=== PATIENT | male | born 1960 | race Caucasian/White ===

== ENCOUNTER 2018-07-08 20:02 | Observation (INO) ==
--- NOTE | 2018-07-08 20:27 | Emergency Department Note ---
Disposition Clinical Impression: Abdominal wall pain Leukocytosis Qualifiers: Leukocytosis type: unspecified Qualified Code(s): D72.829 - Elevated white blood cell count, unspecified Disposition: Admitted As Inpatient Condition: Fair Instructions: Abdominal Pain (ED) Reasons to Return/Additional Instructions: Continue to take home pain medication as prescribed. 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 Return sooner to the ER for any new or worsening symptoms such as fevers, nausea, vomiting, worsening abdominal or back pain. Referrals: Nick Carballo DO [Primary Care Provider] - Forms: ED Satisfaction Letter, Work/School Release Time of Disposition: 23:10 Abdominal Pain HPI - General Chief Complaint: ED Abdominal Pain Stated Complaint: Muscle Spasms Time Seen by Provider: 07/08/18 20:14 Source: patient Mode of arrival: ambulatory Limitations: no limitations Nursing Notes Reviewed: Yes Vital Signs Reviewed: Yes - History of Present Illness HPI Narrative: I have re-performed and reviewed the history documented by the medical student, and I confirm its accuracy except as noted below Pain Scale: 7 - Related Data Allergies Allergy/AdvReac Type Severity Reaction Status Date / Time No Known Allergies Allergy Verified 07/08/18 20:25 All systems ED: reviewed and negative except as stated. Constitutional: Denies: fever Cardiovascular: Denies: chest pain Respiratory: Denies: cough, dyspnea, wheezes Gastrointestinal: Reports: abdominal pain. Denies: nausea, vomiting, diarrhea, constipation, hematemesis, melena, hematochezia Genitourinary: Denies: urgency, dysuria Integumentary: Denies: rash Neurological: Denies: headache, weakness, numbness Abdominal Pain PMH - Past Medical History Medical history: Reports: diabetes, hypertension Male Surgical History: Reports: cholecystectomy Psychiatric history: Reports: no psych history - Social History Smoking status: Current every day smoker Alcohol use: Reports: none Drug use: Reports: none Physical Exam - General Limitations: no limitations General appearance: alert, in no apparent distress - Head Head exam: atraumatic, normocephalic, normal inspection - Eye Eye exam: Present: normal appearance, PERRL, EOMI - ENT ENT exam: normal exam, normal oropharynx, mucous membranes moist - Neck Neck exam: Present: normal inspection, full ROM, trachea midline - Chest Chest inspection: Present: normal inspection, symmetric chest wall rise - Respiratory Respiratory exam: Present: normal lung sounds bilaterally - Cardiovascular Cardiovascular exam: Present: regular rate, normal rhythm, normal heart sounds - Abdominal Exam Abdominal exam: Present: tenderness (Generalized tenderness, worse in the bilateral lower quadrants; tenderness to bilateral flanks just below ribs), distention (Generalized distention), guarding (Very mild guarding of the bilateral lower quadrants) - Extremities Exam Extremities exam: Present: normal inspection, full ROM. Absent: tenderness, pedal edema - Neurological Exam Neurological exam: Present: alert, oriented X3 - Psychiatric Psychiatric exam: Present: normal affect, normal mood - Skin Skin exam: Present: warm, dry, intact, normal color Course Course Narrative: With complaint of flank pain that radiates to the back and also to midline abdomen, there is concern for possible aortic etiology. Physical exam limited due to patient's obese body habitus. We will obtain a CT angiogram abdomen and pelvis. We will also give the patient fentanyl for pain control. We will also obtain LFTs, lipase, CBC, BMP. 22:56 CT abdomen and pelvis negative for any acute intra-abdominal process. Labs show leukocytosis of 20. Patient denies any other concerns for any other infectious etiologies at this time. Patient states his pain is better controlled at this time. He was offered admission for pain control and further evaluation of leukocytosis. Patient states that he recently had facet injections with corticosteroids on June 30 and thinks that this elevation may be due to steroid injections. He has declined offer for admission at this time despite discussing risks and benefits. We will have him follow-up with primary care physician and pain specialist on Wednesday, call for next available appointment. Strongly encourage him to return to the ED for any new or worsening symptoms. Abdomen/Pelvis CTA 07/08/18 20:42 IMPRESSION: Normal CTA of the abdomen and pelvis. No evidence of an abdominal aortic aneurysm. No evidence of abdominal aortic dissection. Mild bronchial wall thickening in the right lower lobe. Mild fatty infiltration liver. Moderate prostatomegaly. Prostate tumor cannot be excluded. Degenerative disc disease at L3-L4 and L5-S1. There is a moderate to severe left L5 nerve root canal stenosis. D/ / Alton Garcia MD / Alton Garcia MD Interpreting Provider: Alton Garcia MD Vital Signs Temperature 98.1 F 07/08/18 20:06 Pulse Rate 111 07/08/18 20:06 Respiratory Rate 20 07/08/18 20:06 Blood Pressure 149/96 07/08/18 20:06 O2 Sat by Pulse Oximetry 96 07/08/18 20:06 Temperature 98.1 F 07/08/18 20:21 Pulse Rate 92 07/08/18 22:22 Respiratory Rate 20 07/08/18 22:22 Blood Pressure 148/87 07/08/18 22:22 O2 Sat by Pulse Oximetry 95 07/08/18 22:22 Oxygen Delivery Oxygen Delivery Room Air Abdominal Pain - MDM Narrative Medical decision making narrative: With complaint of flank pain that radiates to the back and also to midline abdomen, there is concern for possible aortic etiology. Physical exam limited due to patient's obese body habitus. We will obtain a CT angiogram abdomen and pelvis. We will also give the patient fentanyl for pain control. We will also obtain LFTs, lipase, CBC, BMP. 22:56 CT abdomen and pelvis negative for any acute intra-abdominal process. Labs show leukocytosis of 20. Patient denies any other concerns for any other infectious etiologies at this time. Patient states his pain is better controlled at this time. He was offered admission for pain control and further evaluation of leukocytosis. Patient states that he recently had facet injections with corticosteroids on June 30 and thinks that this elevation may be due to steroid injections. He has declined offer for admission at this time despite discussing risks and benefits. We will have him follow-up with primary care physician and pain specialist on Wednesday, call for next available appointment. Strongly encourage him to return to the ED for any new or worsening symptoms such as fevers, worsening pain, nausea, vomiting. Patient states that he has home Percocet that he takes for chronic back pain that he will continue to take as prescribed until follow-up. 23:09 patient reassessed by attending. Patient now states that he would like to stay for further care due to return of abdominal pain. Will seek with hospitalist and admit for intractable abdominal pain and leukocytosis. Accepted by Dr. Graham. - Medical Records Medical records reviewed: Yes I reviewed the patient's medical records. - Lab Data Lab results reviewed: Yes I reviewed the patient's lab results. Result diagrams: 07/08/18 20:40 07/08/18 20:40 Lab Results 07/08/18 07/08/18 07/08/18 Range/Units 20:40 20:40 20:50 WBC 20.1 H (4.3-11.1) K/mcL RBC 5.29 (4.19-5.50) M/mcL Hgb 17.8 H (12.9-16.9) g/dL Hct 51.3 H (37.5-50.1) % MCV 97.0 (83.0-100.0) fL MCH 33.6 H (28.0-33.3) pg MCHC 34.7 (31.6-35.5) g/dL RDW 12.9 (11.5-14.5) % Plt Count 239 (140-400) K/mcL MPV 9.9 (9.4-12.4) fL Immature Gran % 1.1 (0-4) % Seg Neutrophils % 75.2 % Lymphocytes % 14.6 % Monocytes % 7.7 % Eosinophils % 1.1 % Basophils % 0.3 % Neutrophils # 15.1 H (1.6-8.9) K/mcL Lymphocytes # 2.9 (0.6-4.6) K/mcL Monocytes # 1.6 H (0.0-1.3) K/mcL Eosinophils # 0.2 (0.0-0.6) K/mcL Basophils # 0.1 (0.0-0.2) K/mcL Sodium 133 L (136-145) mEq/L Potassium 4.0 (3.5-5.1) mEq/L Chloride 98 (98-107) mEq/L Carbon Dioxide 27 (23-29) mEq/L BUN 27 H (6-20) mg/dL Creatinine 1.00 (0.70-1.30) mg/dL Est GFR ( Amer) > 60 (> 60) Est GFR (Non-Af Amer) > 60 (> 60) BUN/Creatinine Ratio 27 H (6-26) Glucose 159 H (70-105) mg/dL Calculated Osmolality 284 (280-300) Calcium 9.4 (8.6-10.3) mg/dL Total Bilirubin 0.4 (0.3-1.0) mg/dL Direct Bilirubin 0.1 (0.0-0.2) mg/dL Indirect Bilirubin 0.3 (0.0-1.2) mg/dL AST 13 (13-39) Units/L ALT 24 (7-52) Units/L Alkaline Phosphatase 59 (34-104) Units/L Serum Total Protein 7.4 (6.4-8.9) g/dL Albumin 4.5 (3.5-5.7) g/dL Globulin 2.9 (2.4-3.5) g/dL Albumin/Globulin Ratio 1.6 (1.1-2.2) Lipase 40 (11-82) Units/L Urine Color Yellow (Yellow) Urine Clarity Clear (Clear) Urine pH 6.0 (5.0-8.0) pH Units Ur Specific [place] 1.021 (1.010-1.025) Urine Protein Trace (Neg-Trace) mg/dL Urine Glucose (UA) Normal (Normal) mg/dL Urine Ketones Negative (Negative) mg/dL Urine Blood Negative (Negative) Urine Nitrite Negative (Negative) Urine Bilirubin Negative (Negative) Urine Urobilinogen Normal (Normal) mg/dL Ur Leukocyte Esterase Negative (Negative) Urine Microscopic RBC 0-3 (0-3) per hpf Urine Microscopic WBC 0-3 (0-3) per hpf Ur Squamous Epith Cells Moderate H (None-Few) per lpf Urine Bacteria None Seen (None-Few) per hpf Hyaline Casts None Seen (None-Few) per lpf Ur Culture Indicated? NO (NO) - Radiology Data Radiology results reviewed: Yes I reviewed the patient's radiology results. Abdomen/Pelvis CTA 07/08/18 20:42
[2018-07-08] MEDS ORDERED: Isovue-370 500 ML INFUS..BTL IV ONE (20:42)
[2018-07-08] MEDS ORDERED: *HR* FentaNYL (PF) 100 MCG/2 ML VIAL IVP ONE ×2 (20:43→22:14)
--- NOTE | 2018-07-08 20:53 | Emergency Department Note ---
Disposition Clinical Impression: Abdominal wall pain Disposition: Home, Self-Care Referrals: Nick Carballo DO [Primary Care Provider] - Forms: ED Satisfaction Letter, Work/School Release Abdominal Pain HPI - General Chief Complaint: ED Abdominal Pain Stated Complaint: Muscle Spasms Time Seen by Provider: 07/08/18 20:14 Source: patient Mode of arrival: ambulatory - History of Present Illness HPI Narrative: 58yo male with HTN, DM, chronic back pain, and cholecystectomy presents with abdominal muscle spasms for 3 days. Pt states they intermittantly come and today they are worse than usual. He has had muscle spasms in the past, most recently 1 month ago which resolved on their own. This current episode is in his lateral abdomen bilaterally which radiates around to his flank. Pain is worse right now in bilateral lower quadrants. No history of kidney stones. Pt has history of chronic back pain and has had back surgery. He now takes percocet 3 times daily but has taken more today to try to help with the pain. He feels that his stomach feels "tighter than usual" and the spasms feel deep. He denies urinary frequency, urgency, dysuria, or hematuria. Pt has "some kind of infectious diarrhea disease" where he takes medications dailyto "hold off the bacteria." This morning he may have had a little more diarrhea than what is normal for him. Pt has nausea but as not vomited. Pt is currently a 3 pack per day smoker and denies alcohol. Pain Scale: 7 - Related Data Allergies Allergy/AdvReac Type Severity Reaction Status Date / Time No Known Allergies Allergy Verified 07/08/18 20:25 Review of Systems: As Per HPI Constitutional: Denies: fever, chills Cardiovascular: Denies: chest pain Respiratory: Denies: cough Gastrointestinal: Reports: abdominal pain, nausea, diarrhea. Denies: vomiting, constipation, hematemesis, melena, hematochezia Genitourinary: Denies: urgency, dysuria, frequency, hematuria Musculoskeletal: Reports: back pain (chronic) Abdominal Pain PMH - Past Medical History Medical history: Reports: diabetes, hypertension Male Surgical History: Reports: cholecystectomy Psychiatric history: Reports: no psych history - Social History Smoking status: Current every day smoker Alcohol use: Reports: none Drug use: Reports: none Physical Exam poor abdominal exam secondary to patients body habitus - General Limitations: no limitations General appearance: alert, in no apparent distress - Head Head exam: atraumatic, normocephalic - Chest Chest inspection: Present: normal inspection - Respiratory Respiratory exam: Present: normal lung sounds bilaterally - Cardiovascular Cardiovascular exam: Present: regular rate, normal rhythm, normal heart sounds - Abdominal Exam Abdominal exam: Present: tenderness, distention (tighter than usual), guarding ( mild) Abdominal tenderness: Present: LUQ, LLQ Course Course Narrative: Due to paitent body habitus, an accurate physical exam could not be performed. Because of this and the patietns complaints a CTA of the abdomen was performed that showed no acute process. CBC did demonstrate a white count of 20,000. The findings were discussed with patient and stated that he had steroid injection on the 30 of June. Pt stated he would rather than go home than stayed in the hospital. The discussion was had that if any new or worsening symptoms arise to come back for re-evaluation. Vital Signs Temperature 98.1 F 07/08/18 20:06 Pulse Rate 111 07/08/18 20:06 Respiratory Rate 20 07/08/18 20:06 Blood Pressure 149/96 07/08/18 20:06 O2 Sat by Pulse Oximetry 96 07/08/18 20:06 Temperature 98.1 F 07/08/18 20:21 Pulse Rate 92 07/08/18 22:22 Respiratory Rate 20 07/08/18 22:22 Blood Pressure 148/87 07/08/18 22:22 O2 Sat by Pulse Oximetry 95 07/08/18 22:22 Oxygen Delivery Oxygen Delivery Room Air Abdominal Pain - Lab Data Result diagrams: 07/08/18 20:40 07/08/18 20:40 Lab Results 07/08/18 07/08/18 07/08/18 Range/Units 20:40 20:40 20:50 WBC 20.1 H (4.3-11.1) K/mcL RBC 5.29 (4.19-5.50) M/mcL Hgb 17.8 H (12.9-16.9) g/dL Hct 51.3 H (37.5-50.1) % MCV 97.0 (83.0-100.0) fL MCH 33.6 H (28.0-33.3) pg MCHC 34.7 (31.6-35.5) g/dL RDW 12.9 (11.5-14.5) % Plt Count 239 (140-400) K/mcL MPV 9.9 (9.4-12.4) fL Immature Gran % 1.1 (0-4) % Seg Neutrophils % 75.2 % Lymphocytes % 14.6 % Monocytes % 7.7 % Eosinophils % 1.1 % Basophils % 0.3 % Neutrophils # 15.1 H (1.6-8.9) K/mcL Lymphocytes # 2.9 (0.6-4.6) K/mcL Monocytes # 1.6 H (0.0-1.3) K/mcL Eosinophils # 0.2 (0.0-0.6) K/mcL Basophils # 0.1 (0.0-0.2) K/mcL Sodium 133 L (136-145) mEq/L Potassium 4.0 (3.5-5.1) mEq/L Chloride 98 (98-107) mEq/L Carbon Dioxide 27 (23-29) mEq/L BUN 27 H (6-20) mg/dL Creatinine 1.00 (0.70-1.30) mg/dL Est GFR ( Amer) > 60 (> 60) Est GFR (Non-Af Amer) > 60 (> 60) BUN/Creatinine Ratio 27 H (6-26) Glucose 159 H (70-105) mg/dL Calculated Osmolality 284 (280-300) Calcium 9.4 (8.6-10.3) mg/dL Total Bilirubin 0.4 (0.3-1.0) mg/dL Direct Bilirubin 0.1 (0.0-0.2) mg/dL Indirect Bilirubin 0.3 (0.0-1.2) mg/dL AST 13 (13-39) Units/L ALT 24 (7-52) Units/L Alkaline Phosphatase 59 (34-104) Units/L Serum Total Protein 7.4 (6.4-8.9) g/dL Albumin 4.5 (3.5-5.7) g/dL Globulin 2.9 (2.4-3.5) g/dL Albumin/Globulin Ratio 1.6 (1.1-2.2) Lipase 40 (11-82) Units/L Urine Color Yellow (Yellow) Urine Clarity Clear (Clear) Urine pH 6.0 (5.0-8.0) pH Units Ur Specific [place] 1.021 (1.010-1.025) Urine Protein Trace (Neg-Trace) mg/dL Urine Glucose (UA) Normal (Normal) mg/dL Urine Ketones Negative (Negative) mg/dL Urine Blood Negative (Negative) Urine Nitrite Negative (Negative) Urine Bilirubin Negative (Negative) Urine Urobilinogen Normal (Normal) mg/dL Ur Leukocyte Esterase Negative (Negative) Urine Microscopic RBC 0-3 (0-3) per hpf Urine Microscopic WBC 0-3 (0-3) per hpf Ur Squamous Epith Cells Moderate H (None-Few) per lpf Urine Bacteria None Seen (None-Few) per hpf Hyaline Casts None Seen (None-Few) per lpf Ur Culture Indicated? NO (NO)
[2018-07-08 21:06] LABS: Bilirubin,Urine Negative (Negative); Blood,Urine Negative (Negative); Clarity,Urine Clear (Clear); Color,Urine Yellow (Yellow); Glucose,Urine (UA) Normal (Normal); Ketones,Urine Negative (Negative); Leukocyte Esterase,Urine Negative (Negative); Nitrite,Urine Negative (Negative); Protein,Urine Trace mg/dL (Neg-Trace); Specific Gravity,Urine 1.021 (1.010-1.025); Urobilinogen,Urine Normal (Normal)
[2018-07-08 21:08] LABS: Bacteria,Urine None Seen per hpf (None-Few); Hyaline Casts,Urine None Seen per lpf (None-Few); RBC,Urine 0-3 per hpf (0-3); Squamous Epithelial Cell,Urine Moderate per lpf (None-Few); WBC,Urine 0-3 per hpf (0-3)
[2018-07-08 21:08] LABS: Basophils # 0.1 K/mcL (0.0-0.2); Basophils % 0.3 %; Eosinophils # 0.2 K/mcL (0.0-0.6); Eosinophils % 1.1 %; Hematocrit 51.3 % (37.5-50.1); Hemoglobin 17.8 g/dL (12.9-16.9); Immature Granulocytes % 1.1 % (0-4); Lymphocytes # 2.9 K/mcL (0.6-4.6); Lymphocytes % 14.6 %; Mean Corpuscular HGB Conc 34.7 g/dL (31.6-35.5); Mean Corpuscular Hemoglobin 33.6 pg (28.0-33.3); Mean Platelet Volume 9.9 fL (9.4-12.4); Monocytes # 1.6 K/mcL (0.0-1.3); Monocytes % 7.7 %; Neutrophils # 15.1 K/mcL (1.6-8.9); Platelet Count 239 K/mcL (140-400); Red Blood Count 5.29 M/mcL (4.19-5.50); Red Cell Distribution Width 12.9 % (11.5-14.5); Segmented Neutrophils % 75.2 %
[2018-07-08 21:24] LABS: Alanine Aminotransferase 24 Units/L (7-52); Albumin 4.5 g/dL (3.5-5.7); Albumin/Globulin Ratio 1.6 (1.1-2.2); Alkaline Phosphatase 59 Units/L (34-104); Aspartate Amino Transferase 13 Units/L (13-39); BUN/Creatinine Ratio 27 (6-26); Bilirubin,Direct 0.1 mg/dL (0.0-0.2); Bilirubin,Indirect 0.3 mg/dL (0.0-1.2); Bilirubin,Total 0.4 mg/dL (0.3-1.0); Blood Urea Nitrogen 27 mg/dL (6-20); Calcium 9.4 mg/dL (8.6-10.3); Carbon Dioxide 27 mEq/L (23-29); Chloride 98 mEq/L (98-107); Globulin 2.9 g/dL (2.4-3.5); Glucose 159 mg/dL (70-105); Lipase 40 Units/L (11-82); Osmolality,Calculated 284 (280-300); Sodium 133 mEq/L (136-145); Total Protein 7.4 g/dL (6.4-8.9); eGFR For Non-African Americans > 60 (> 60)
--- NOTE | 2018-07-08 21:29 | Emergency Department Note ---
Disposition Clinical Impression: Abdominal wall pain, Leukocytosis Disposition: Admitted As Inpatient Condition: Fair Instructions: Abdominal Pain (ED) Reasons to Return/Additional Instructions: Continue to take home pain medication as prescribed. 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 Return sooner to the ER for any new or worsening symptoms such as fevers, nausea, vomiting, worsening abdominal or back pain. Referrals: Nick Carballo, [Primary Care Provider] - Forms: ED Satisfaction Letter, Work/School Release General Adult HPI - General Chief complaint: ED Abdominal Pain Stated complaint: Muscle Spasms Time Seen by Provider: 07/08/18 20:14 Source: patient Mode of arrival: ambulatory Limitations: no limitations - History of Present Illness Pain Scale: 6 - Related Data Allergies Allergy/AdvReac Type Severity Reaction Status Date / Time No Known Allergies Allergy Verified 07/08/18 20:25 Constitutional: Denies: fever, chills Cardiovascular: Denies: chest pain Respiratory: Denies: cough Gastrointestinal: Reports: abdominal pain, nausea, diarrhea. Denies: vomiting, constipation, hematemesis, melena, hematochezia Genitourinary: Denies: urgency, dysuria, frequency, hematuria Musculoskeletal: Reports: back pain (chronic) Integumentary: Denies: rash Neurological: Denies: headache, weakness, numbness Past Medical History - Past Medical History Medical history: Reports: diabetes, hypertension Psychiatric history: Reports: no psych history - Social History Smoking Status: Current every day smoker Smokeless Tobacco Status: No Alcohol use: Reports: none Drug use: Reports: none Physical Exam - General Limitations: no limitations General appearance: alert, in no apparent distress Course Vital Signs Temperature 98.1 F 07/08/18 20:06 Pulse Rate 111 07/08/18 20:06 Respiratory Rate 20 07/08/18 20:06 Blood Pressure 149/96 07/08/18 20:06 O2 Sat by Pulse Oximetry 96 07/08/18 20:06 Temperature 98.1 F 07/08/18 20:21 Pulse Rate 92 07/08/18 22:22 Respiratory Rate 20 07/08/18 22:22 Blood Pressure 148/87 07/08/18 22:22 O2 Sat by Pulse Oximetry 95 07/08/18 22:22 Oxygen Delivery Oxygen Delivery Room Air Medical Decision Making - Lab Data Result diagrams: 07/08/18 20:40 07/08/18 20:40 Lab Results 07/08/18 07/08/18 07/08/18 Range/Units 20:40 20:40 20:50 WBC 20.1 H (4.3-11.1) K/mcL RBC 5.29 (4.19-5.50) M/mcL Hgb 17.8 H (12.9-16.9) g/dL Hct 51.3 H (37.5-50.1) % MCV 97.0 (83.0-100.0) fL MCH 33.6 H (28.0-33.3) pg MCHC 34.7 (31.6-35.5) g/dL RDW 12.9 (11.5-14.5) % Plt Count 239 (140-400) K/mcL MPV 9.9 (9.4-12.4) fL Immature Gran % 1.1 (0-4) % Seg Neutrophils % 75.2 % Lymphocytes % 14.6 % Monocytes % 7.7 % Eosinophils % 1.1 % Basophils % 0.3 % Neutrophils # 15.1 H (1.6-8.9) K/mcL Lymphocytes # 2.9 (0.6-4.6) K/mcL Monocytes # 1.6 H (0.0-1.3) K/mcL Eosinophils # 0.2 (0.0-0.6) K/mcL Basophils # 0.1 (0.0-0.2) K/mcL Sodium 133 L (136-145) mEq/L Potassium 4.0 (3.5-5.1) mEq/L Chloride 98 (98-107) mEq/L Carbon Dioxide 27 (23-29) mEq/L BUN 27 H (6-20) mg/dL Creatinine 1.00 (0.70-1.30) mg/dL Est GFR ( Amer) > 60 (> 60) Est GFR (Non-Af Amer) > 60 (> 60) BUN/Creatinine Ratio 27 H (6-26) Glucose 159 H (70-105) mg/dL Calculated Osmolality 284 (280-300) Calcium 9.4 (8.6-10.3) mg/dL Total Bilirubin 0.4 (0.3-1.0) mg/dL Direct Bilirubin 0.1 (0.0-0.2) mg/dL Indirect Bilirubin 0.3 (0.0-1.2) mg/dL AST 13 (13-39) Units/L ALT 24 (7-52) Units/L Alkaline Phosphatase 59 (34-104) Units/L Serum Total Protein 7.4 (6.4-8.9) g/dL Albumin 4.5 (3.5-5.7) g/dL Globulin 2.9 (2.4-3.5) g/dL Albumin/Globulin Ratio 1.6 (1.1-2.2) Lipase 40 (11-82) Units/L Urine Color Yellow (Yellow) Urine Clarity Clear (Clear) Urine pH 6.0 (5.0-8.0) pH Units Ur Specific [place] 1.021 (1.010-1.025) Urine Protein Trace (Neg-Trace) mg/dL Urine Glucose (UA) Normal (Normal) mg/dL Urine Ketones Negative (Negative) mg/dL Urine Blood Negative (Negative) Urine Nitrite Negative (Negative) Urine Bilirubin Negative (Negative) Urine Urobilinogen Normal (Normal) mg/dL Ur Leukocyte Esterase Negative (Negative) Urine Microscopic RBC 0-3 (0-3) per hpf Urine Microscopic WBC 0-3 (0-3) per hpf Ur Squamous Epith Cells Moderate H (None-Few) per lpf Urine Bacteria None Seen (None-Few) per hpf Hyaline Casts None Seen (None-Few) per lpf Ur Culture Indicated? NO (NO) Attestation Statement - Attestation Attestation: I examined this patient and my medical decision-making was reviewed with the TUBE DISPATCHER/PA/Advanced Practice Nurse/Resident Physician. I agree with the documented findings, disposition and treatment plan as described except to the extent set forth below. I did see the patient and spoke with him and examine him. Does have moderate amount of generalized abdominal pain. CTA of the abdomen as well as labs are pending. The patient denies any fevers or vomiting the patient does not have any blood in the urine or stool. Concern for ischemic pain and that is why the CTAs pain done. Vital signs revealed tachycardia but no hypotension. White blood cell count significantly elevated. CT scan pending. 2126 I did review the patient's labs with a white blood cell count over 20,000 which is concerning. He did receive facet joint steroid injections 8 days ago but it is hard with a white blood cell count is elevated because of that. Additionally the patient was reexaminedI did reexamine the abdomen with minimal generalized pain but in addition did examine the area and there is no evidence of Migue's gangrene, hernias, or any cellulitis about the gluteal region. He does have minimal left testicular pain which she states is chronic but no masses are palpated. No right testicular pain. No penile discharge. Concern could be for bacteremia. CTA of the abdomen is negative but the patient is still having ongoing abdominal pain as well as elevated white blood cell count. I do not detect an acute surgical etiology. The patient will be admitted for further observation and management. The patient will have blood cultures done as he may have bacteremia manifested by the increased white blood cell count and we will not know about the culture results for 24-48 hours 1114
[2018-07-09] MEDS ORDERED: 0.9 % Sodium Chloride 1,000 ML IVC ONE (00:02)
[2018-07-09] MEDS ORDERED: Dextrose Gel 15 GM/37.5 ML TUBE PO PRN ×2 (00:46)
[2018-07-09] MEDS ORDERED: *HR* OxyCODONE Immed Rel 5 MG TABLET PO PRN (01:13)
[2018-07-09 02:00] LABS: Basophils # 0.1 K/mcL (0.0-0.2); Basophils % 0.3 %; Eosinophils # 0.2 K/mcL (0.0-0.6); Eosinophils % 1.3 %; Hematocrit 49.7 % (37.5-50.1); Hemoglobin 16.9 g/dL (12.9-16.9); Immature Granulocytes % 1.1 % (0-4); Lymphocytes # 2.6 K/mcL (0.6-4.6); Lymphocytes % 14.1 %; Mean Corpuscular Hemoglobin 33.1 pg (28.0-33.3); Mean Corpuscular Volume 97.3 fL (83.0-100.0); Mean Platelet Volume 10.1 fL (9.4-12.4); Monocytes # 1.2 K/mcL (0.0-1.3); Monocytes % 6.5 %; Neutrophils # 14.1 K/mcL (1.6-8.9); Platelet Count 239 K/mcL (140-400); Red Blood Count 5.11 M/mcL (4.19-5.50); Segmented Neutrophils % 76.7 %
[2018-07-09 02:19] LABS: BUN/Creatinine Ratio 29 (6-26); Blood Urea Nitrogen 26 mg/dL (6-20); Calcium 9.4 mg/dL (8.6-10.3); Carbon Dioxide 27 mEq/L (23-29); Chloride 97 mEq/L (98-107); Glucose 150 mg/dL (70-105); Osmolality,Calculated 282 (280-300); Potassium 4.3 mEq/L (3.5-5.1); Sodium 132 mEq/L (136-145); eGFR For Non-African Americans > 60 (> 60)
--- NOTE | 2018-07-09 02:55 | Internal Med History&Physical ---
Date of Encounter: 07/09/18 Time of Encounter: 02:51 Internal Medicine - H&P: HPI Chief complaint: abdominal pain Admitted From: Home Plans for Post Hospital Care: Home History of present illness: Mr. Mckeno is a 58 year old morbidly man with a history of chronic back pain for which he is on longstanding opiates and undergoes intra-articular steroid injections who presents to the ER with the complaint of lower abdominal pain for 3 days. He states he usually gets musculoskeletal pains diffusely especially in his back and sides of his chest but that this lower abdomen pain is new. In the ER a CT scan was done which did not show acute anomalies. Serum studies are within normal limits however he was seen to have leukocytosis of unclear etiology. He states he does not take systemic steroids. He has felt nauseated but denies vomiting, fever, chills and diarrhea. He was given multiple doses of analgesics to obtain relief and on my assessment he was sitting up in bed with only mild discomfort during movement. He was admitted for observation due to the finding of leukocytosis with abdominal pain of unclear etiology. Past Med Surg Social Fam HX - Past Medical History Medical history: hypertension Additional medical history: Rectal abscess Psychiatric history: no psych history - Past Surgical History Surgical History: cholecystectomy Additional surgical history: rectal abscess, back surgery - Social History Smoking Status: Current every day smoker Packs per day: 3 Smokeless Tobacco Status: No Alcohol use: none Drug use: none Internal Medicine - H&P: Meds Cholestyramine 4 g PO DAILY 07/09/18 [History] Fenofibrate [Tricor] 54 mg PO DAILY 07/09/18 [History] Gabapentin [Neurontin] 300 mg PO TID 07/09/18 [History] Lisinopril/Hydrochlorothiazide [Zestoretic 10-12.5 mg Tablet] See Protocol PO [History] Oxycodone HCl 10 mg PO TID 07/09/18 [History] Ranitidine HCl [Acid Rental Car Porter] 150 mg PO BID 07/09/18 [History] Tizanidine HCl [Zanaflex] 4 mg PO BID 07/09/18 [History] rOPINIRole [Requip] 1 mg PO DAILY 07/09/18 [History] 3 Allergy/AdvReac Type Severity Reaction Status Date / Time No Known Allergies Allergy Verified 07/08/18 20:25 All Systems PM: A 10-system review of systems was performed and is negative for pertinent findings except as documented above in the HPI. - Constitutional Vitals: Temp Pulse Resp BP Pulse Ox 97.8 F 89 18 146/96 91 07/09/18 00:28 07/09/18 00:28 07/09/18 00:28 07/09/18 00:28 07/09/18 00:28 Exam: Vitals: Reviewed General: Obese, NAD Skin: Warm and supple. HEENT: Moist mucous membranes. No conjunctivae pallor. Neck: No lymphadenopathy. No JVD. No carotid bruits. No palpable thyroid. Chest: Normal thoracic expansion. Normal breath sounds. Clear to auscultation. Heart: Normal S1 & S2; rhythmic. No rubs or murmurs. Abdomen: Highly distended and only tender to palpation in the lower abdominal wall and musculature, no peritoneal reaction. Extremities: No clubbing, cyanosis or edema. No calf tenderness. Normal distal pulses. Neurological: Awake, alert and oriented to person, place and time. No focal deficits. Psych: Affect appropriate. Internal Med - H&P Results - Labs CBC & Chem 7: 07/09/18 01:20 07/09/18 01:20 Labs: Short CBC 07/09/18 Range/Units 01:20 WBC 18.4 H (4.3-11.1) K/mcL Hgb 16.9 (12.9-16.9) g/dL Hct 49.7 (37.5-50.1) % Plt Count 239 (140-400) K/mcL Neutrophils # 14.1 H (1.6-8.9) K/mcL BMP 07/09/18 01:20 Sodium 132 L Potassium 4.3 Chloride 97 L Carbon Dioxide 27 BUN 26 H Creatinine 0.90 Glucose 150 H Calcium 9.4 - Assessment and plan (1) Abdominal wall pain Current Visit: Yes Status: Acute Assessment and plan: Unclear etiology. Lipase and urine studies within normal limits. He denies dysuria given the location is somewhat suprapubic in origin. It appears to be more related with the abdominal wall itself and musculature rather than deep structures based on my physical exam. Will continue pain medications as needed. (2) Leukocytosis Current Visit: Yes Status: Acute Assessment and plan: Seems to be a new finding however there are no active signs of infection to which to attribute this to. This is the main reason for observation in addition to his abdominal pain to ensure there is no acute organic process causing this. Cultures were obtained however there is no indication for antibiotic therapy at this time. Will repeat CBC and see if this improves with fluids alone. Qualifiers: Leukocytosis type: unspecified Qualified Code(s): D72.829 - Elevated white blood cell count, unspecified (3) Hyponatremia Current Visit: Yes Status: Acute Assessment and plan: Unclear etiology. Will give IV NS and re-check value as it may be hypovolemic in origin. (4) Lumbago Current Visit: Yes Status: Chronic Assessment and plan: Will continue muscle relaxants and pain medications. He follows as an outpatient. Qualifiers: Chronicity: chronic Back pain laterality: bilateral Sciatica presence: with sciatica Sciatica laterality: sciatica laterality unspecified Qualified Code(s): M54.40 - Lumbago with sciatica, unspecified side; G89.29 - Other chronic pain (5) Hypertension Current Visit: Yes Status: Chronic Assessment and plan: Resume lisinopril/hctz. Qualifiers: Hypertension type: essential hypertension Qualified Code(s): I10 - Essential (primary) hypertension (6) DVT prophylaxis Current Visit: Yes Status: Acute Assessment and plan: SubQ heparin ordered. - Time Spent With Patient Total time spent is greater than 50% in coordination of care (as documented) at patient's floor/unit and/or counseling patient: 25 - 35 minutes
[2018-07-09] MEDS ORDERED: Insulin LISPRO 300 UNITS/3 ML VIAL SQ SCH (06:00)
[2018-07-09] MEDS ORDERED: *HR* Heparin 5,000 UNIT/ML VIAL SQ SCH (06:00)
[2018-07-09 07:01] VITALS: BP 150/94
[2018-07-09] MEDS ORDERED: Famotidine 20 MG TABLET PO SCH (09:00)
[2018-07-09] MEDS ORDERED: tiZANidine 4 MG TABLET PO SCH (09:00)
[2018-07-09] MEDS ORDERED: Gabapentin 300 MG CAPSULE PO SCH (09:00)
[2018-07-09] MEDS ORDERED: Fenofibrate 54 MG TABLET PO SCH (09:00)
[2018-07-09] MEDS ORDERED: Cholestyramine 4 GM POWD.PACK PO SCH (09:38)
--- NOTE | 2018-07-09 11:12 | Discharge Summary ---
Date of Encounter: 07/09/18 Time of Encounter: 11:10 - Discharge Diagnosis (1) Abdominal wall pain Priority: Primary Status: Acute (2) Lumbago Priority: Primary Status: Chronic Qualifiers: Chronicity: chronic Back pain laterality: bilateral Sciatica presence: with sciatica Sciatica laterality: sciatica laterality unspecified Qualified Code(s): M54.40 - Lumbago with sciatica, unspecified side; G89.29 - Other chronic pain (3) Leukocytosis Priority: Secondary Status: Acute Qualifiers: Leukocytosis type: unspecified Qualified Code(s): D72.829 - Elevated white blood cell count, unspecified (4) Hypertension Priority: Secondary Status: Chronic Qualifiers: Hypertension type: essential hypertension Qualified Code(s): I10 - Essential (primary) hypertension Hospital course: Mr. Mckeon is a 58 year old male. This is a patient with severe DJD of spine. He is on OxyContin. We admitted him with lower abdominal pain. We did CT of abdomen/pelvis. It showed normal findings. He has elevated WBC count, likely due to a steroid injection he received the about 1 week before this admission. His WBC count dropped from 20, 1 thousand to 18.4 thousand. He got significantly better by the time of discharge. CONDITION AT DISCHARGE: His neck pain/lower back pain seemed to be under control. He has only mild lower abdominal pain. It is not associated with nausea or vomiting. He has normal bowel movements. Skin: Free of rash and discoloration. Respiratory: Normal breath sounds with no crackles and wheezes bilaterally. CV: Heart is regular with no gallop or murmur. GI: Abdomen is flat and soft with no palpable mass or visceromegaly. Neuro exam: There is no focal deficits. Normal speech, swallowing and gait. SEE DISCHARGE ORDERS/MEDICATIONS.. - Time Spent with Patient Total time spent providing and/or coordinating discharge services: Greater than 30 minutes (40 minutes..) - Discharge Medications Home Medications: Cholestyramine 4 g PO DAILY 07/09/18 [History] Fenofibrate [Tricor] 54 mg PO DAILY 07/09/18 [History] Gabapentin [Neurontin] 300 mg PO TID 07/09/18 [History] Lisinopril/Hydrochlorothiazide [Zestoretic 10-12.5 mg Tablet] See Protocol PO [History] Oxycodone HCl 10 mg PO TID 07/09/18 [History] Ranitidine HCl [Acid Nuclear Medicine Chief Technologist] 150 mg PO BID 07/09/18 [History] Tizanidine HCl [Zanaflex] 4 mg PO BID 07/09/18 [History] rOPINIRole [Requip] 1 mg PO DAILY 07/09/18 [History] Allergies/Adverse Reactions: 3 Allergy/AdvReac Type Severity Reaction Status Date / Time No Known Allergies Allergy Verified 07/08/18 20:25 Date of admission: 07/08/18 23:51 Primary care physician: Nick Carballo - Constitutional Vitals: Temp Pulse Resp BP Pulse Ox 98.2 F 89 18 150/94 94 07/09/18 06:55 07/09/18 06:55 07/09/18 06:55 07/09/18 06:55 07/09/18 06:55 General appearance: Present: A&O X 3, no acute distress, answers questions appropriately - Patient Status Disposition: Home, Self-Care Condition: Fair Functional capacity at discharge: independent ambulation Overall status at discharge: patient is progressing back to baseline - Discharge Instructions Follow Up With: Nick Carballo DO [Primary Care Provider] - Additional Instructions: CBC - at his PCP's office (next week) - Diet and Activity Activity: resume usual activities as tolerated Diet: low fat, low cholesterol - VTE Deep Vein Thrombosis/Pulmonary Embolism Present on Admission: No
[2018-07-09] MEDS ORDERED: rOPINIRole 1 MG TABLET PO SCH (21:00)
== END 2018-07-09 12:00 | disposition home or self-care (01) ==
LOC: 3ANU 20:02 → EMEROOARM 20:02 → SUATTDRO 23:51 → 3ANU 07-09 00:16
PROVIDERS: ADMIT Internal Medicine; ATTEND Internal Medicine